=== PATIENT | female | born 1985 | race Caucasian/White ===

== ENCOUNTER 2023-07-14 15:10 | Emergency (ER) | payer OTHER, SELFPAY ==
[2023-07-14 15:12] VITALS: BP 131/86
[2023-07-14 15:44] VITALS: BMI 22.3
--- NOTE | 2023-07-14 16:31 | ED.GENMED ---
History of Present Illness
<Alberta Piedra PA-C - Last Filed: 07/14/23 19:44>
General
Chief Complaint: Back Pain
Source: patient
Exam Limitations: none
Time Seen by Provider: 07/14/23 16:29
Nursing documentation reviewed up to this point in time: agreed with
Travel History
Have you had any contact with someone who has COVID-19?: No
Do you have any symptoms of coronavirus? Fever > 100 degrees, chills, cough, shortness of breath, sore throat, loss of taste or smell, muscle aches, or headache?: No
History of Present Illness
History of Present Illness:
This is a 38 y/o female with PMH of hemochromatosis presenting to the emergency department today with concerns of low back pain, left foot bruising and paresthesias. Patient states the back pain started a month ago. Patient saw her primary
yesterday for this pain, she was given baclofen as well as a NSAID to take for relief. Patient had 1 dose of baclofen and one of her anti-inflammatory agent. Patient still has no relief, did not take any further doses. Patient also notes that she
has had bilateral hip pain for the past 15 years. Patient has no cause of the symptoms. Patient also complains of irregular periods today. Her primary did order a ultrasound. Patient is concerned the symptoms are all connected. Her main concern
today seems to be the atraumatic bruising on her left foot as well as a lack of relief with her back pain. Patient is no history of bleeding disorders. Patient has no fevers or chills, unexplained weight loss, bleeding in her gums, melena.
Patient denies any urinary incontinence, fecal incontinence.
Review of Systems
<Alberta Piedra PA-C - Last Filed: 07/14/23 19:44>
Review of Systems
All Other Systems: ROS reviewed and negative except as documented in HPI and ROS
Phy Exam
<Alberta Piedra PA-C - Last Filed: 07/14/23 19:44>
Physical Exam
Physical Exam:
Vitals: Patient's vital signs are stable, patient is afebrile
General: Patient is well appearing and in no acute distress; non-toxic
Skin: There is a small area of ecchymosis on the left lateral foot near the MCP. No tenderness palpation. Not hot to touch, no erythema
Head: Normocephalic, atraumatic
Eyes: Sclera non-icteric. EOMs intact.
Cardiac: Regular rate
Peripheral Vascular: No lower extremity swelling
Pulm: Normal respiratory effort
Abdomen: No abdominal tenderness
Musculoskeletal: No midline spinal tenderness, no palpable deformities. Patient does have some mild paralumbar tenderness on either side. No pain with range of motion of hips bilaterally.
Neuro: CN II-XII intact, no focal neurologic deficits.
Psychiatric: Appropriate mood and affect.
Course
<Alberta Piedra PA-C - Last Filed: 07/14/23 19:44>
Orders/Labs/Results
Orders:
Orders
07/14/23 17:29
Lumbar Spine, 2 or 3 View [CR Lumbar Spine 2 Or 3 Views] Urgent
Comment:
Reason For Exam: low back pain
07/14/23 17:30
Test Result ONCE
07/14/23 17:50
Complete Blood Count/With Diff Urgent
HCG, Serum Qualitative Screen Urgent
Abnormal Lab Results
07/14/23
17:50
RBC 3.93 L 10^6/uL
(4.20-5.40)
Hgb 11.5 L g/dL
(12.0-16.0)
Hct 34.3 L %
(37.0-47.0)
MPV 10.5 H fL
(7.4-10.4)
Absolute Monos (auto) 0.7 H 10^3/uL
(0.1-0.6)
07/14/23 17:50
Vital Signs
Initial and Last Documented VS:
Initial Vital Signs
Temp Pulse Resp BP Pulse Ox
98.0 F 74 18 131/86 99
07/14/23 15:12 07/14/23 15:12 07/14/23 15:12 07/14/23 15:12 07/14/23 15:12
Last Documented Vital Signs
Temp Pulse Resp BP Pulse Ox
98.0 F 74 18 128/61 99
07/14/23 15:12 07/14/23 19:18 07/14/23 19:18 07/14/23 19:18 07/14/23 19:18
<Ben Sharath Cabrera DO - Last Filed: 07/14/23 17:39>
Orders/Labs/Results
Orders:
Orders
07/14/23 17:29
Lumbar Spine, 2 or 3 View [CR Lumbar Spine 2 Or 3 Views] Urgent
Comment:
Reason For Exam: low back pain
07/14/23 17:30
Test Result ONCE
07/14/23 17:50
Complete Blood Count/With Diff Urgent
HCG, Serum Qualitative Screen Urgent
Abnormal Lab Results
07/14/23
17:50
RBC 3.93 L 10^6/uL
(4.20-5.40)
Hgb 11.5 L g/dL
(12.0-16.0)
Hct 34.3 L %
(37.0-47.0)
MPV 10.5 H fL
(7.4-10.4)
Absolute Monos (auto) 0.7 H 10^3/uL
(0.1-0.6)
07/14/23 17:50
Vital Signs
Initial and Last Documented VS:
Initial Vital Signs
Temp Pulse Resp BP Pulse Ox
98.0 F 74 18 131/86 99
07/14/23 15:12 07/14/23 15:12 07/14/23 15:12 07/14/23 15:12 07/14/23 15:12
Last Documented Vital Signs
Temp Pulse Resp BP Pulse Ox
98.0 F 74 18 128/61 99
07/14/23 15:12 07/14/23 19:18 07/14/23 19:18 07/14/23 19:18 07/14/23 19:18
<Alberta Piedra PA-C - Last Filed: 07/14/23 19:44>
MDM/Problems Addressed
Differential Diagnosis Includes:
ddx include sacrailiac muscle sprain, scoliosis, rheumatoid thrice, osteoarthritis, normal uterine bleeding, hemophilia, anemia
MDM/Problems Addressed:
Back pain, ecchymosis
Chronic conditions affecting care:
hemachromatosis
<Alberta Piedra PA-C - Last Filed: 07/14/23 19:44>
*Radiology
Radiology exam reviewed: preliminary read by ED provider (No acute fracture or dislocation)
*Pulse Oximetry
Patient hypoxic: no
*Critical Care Note
Total Time (30-74mins, 75-104mins- exclusive of procedures): Not Applicable
Data Reviewed
Review of Other/Old Records Reveals: Records (No previous ER records to review.) and Discharge Summary (No discharge summaries in [facility] to review)
Source: patient and records
<Alberta Piedra PA-C - Last Filed: 07/14/23 19:44>
Patient Management
Escalation/DeEscalation of care consider admission/obs:
This is a 38 y/o female with PMH of hemochromatosis presenting to the emergency department today with concerns of low back pain, left foot bruising and paresthesias. Patient was seen by her primary yesterday and given baclofen and NSAIDs. Patient
is not having relief. Her x-ray demonstrates some osteophytes in the spine, some mild scoliosis, some mild sclerosis in the hips bilaterally which may be early avascular necrosis. We updated patient on these findings, patient was given referral
for orthopedics.
Patient does have an ultrasound ordered by her primary for irregular menstruation and intermittent vaginal bleeding. Patient will follow-up with this. In terms of patient's bruising, patient no trauma but considering patient's platelet counts are
normal, no concern at this time, patient will follow-up with her primary.
Patient in agreement with plan, return precautions given.
ED Attending Note
<Alberta Piedra PA-C - Last Filed: 07/14/23 19:44>
-
Portions of this chart may have been created with voice recognition software.� Occasional wrong word or��sound alike� substitutions may have occurred due to the inherent limitations of voice recognition software.
<Ben Cabrera DO - Last Filed: 07/14/23 17:39>
ED Attending Note
Patient seen and examined by attending physician: Yes
I performed the substantive portion of visit, reviewed & personally made and approve the management plan that is documented in note by myself or AMADOU.: Yes
ED Attending Note:
I agree with Alberta's note.
Pt with low back pain, foot bruise and irregular periods. No bowel or bladder dysfx. No weakness/numbness/tingling.
General: Awake, Alert, Oriented X3. No acute distress.
Vitals: unremarkable
Head: Atraumatic
Eyes: Pupils equal, EOMI
Throat: Airway intact, no exudates
Neck: Trachea midline
Lungs: Clear and equal b/l
Heart: Regular rate, no murmurs
Abd: Soft, Nontender, No pulsatile mass
Neuro: Nonfocal muscle strength equal bilateral lower extremities. Sensation intact. Reflexes intact
Skin: Warm, dry, no rash
Extremities: pulses equal b/l, no edema,
We will obtain CBC to make sure she is not thrombocytopenic. Plain films ordered.
Discharge Plan
Departure
Patient Disposition: Home (Routine Discharge)
Date of Disposition: 07/14/23
Time of Disposition: 19:03
Patient with high blood pressure during this ER visit?: Yes
Condition: Good
Discharge Problem:
Sprain of sacroiliac joint
Instructions: Low Back Pain (DC), Sacroiliac Joint Pain (DC), BLOOD PRESSURE
Prescriptions:
New
methylprednisolone [Medrol (Gregorio)] 4 mg tablets,dose pack
See Rx Instructions .ROUTE .COMPLEX Qty: 21 0RF
Rx Instructions:
orally per package directions
Referrals:
Rahul Stuart MD [Active] - Call in 1-3 days for appt
Yogi Wilkins MD [Family Provider] -
Activity Restrictions/Additional Instructions:
Please continue your NSAID and muscle relaxant as prescribed by your primary care provider. Should your symptoms not resolve, you can trial a medrol dose pack, please follow package instructions for dosing.
Please follow up with your primary care provider should you experience more unexplained bruising, fevers or chills, unexplained weight loss, bleeding from your gums, continued heavy menstrual bleeding.
Please return to the emergency department for any concerns.
Interventions
Interventions:
*Risk Screen - Suicide Last Done: 07/14/23 15:12
*General Assessment Last Done: 07/14/23 15:12
*Neglect/Abuse Screening Last Done: 07/14/23 15:12
ED- Fall Risk Assessment Last Done: 07/14/23 15:44
*ED COVID-19 Vaccine History Last Done: 07/14/23 15:12
*Nursing Disposition Last Done: 07/14/23 19:18
ED-Musculoskeletal Assessment Last Done: 07/14/23 15:44
Discharge Date and Time
Discharge Date/Time: 07/14/23 19:19
Print Language: DJIBOUTIAN
--- NOTE | 2023-07-14 17:28 | EDRN ---
Dr. Cabrera currently at the pts bedside speaking with the pt
[2023-07-14 17:57] LABS: % Basophils 0.5 % (0-2); % Immature Granulocytes 0.1 % (0-0.5); % Lymphocytes 33.1 % (20.5-51.1); % Monocytes 8.2 % (1.7-9.3); % Neutrophils 56.1 % (42.2-75.2); Absolute Eosinophils 0.2 10^3/uL (0-0.7); Absolute Lymphocytes 2.9 10^3/uL (1.2-3.4); Absolute Monocytes 0.7 10^3/uL (0.1-0.6); Absolute Neutrophils 4.9 10^3/uL (1.4-6.5); Hematocrit 34.3 % (37.0-47.0); Hemoglobin 11.5 g/dL (12.0-16.0); Mean Corp Hgb Conc. 33.5 g/dL (33.0-37.0); Mean Corpuscular Hgb 29.3 pg (27.0-31.0); Mean Corpuscular Volume 87.3 fL (81.0-99.0); Mean Platelet Volume 10.5 fL (7.4-10.4); Nucleated Red Blood Cells % 0 %; Platelet Count 246 10^3/uL (130-400); Red Blood Cell Count 3.93 10^6/uL (4.20-5.40); Red Cell Dist. Width 12.9 % (11.5-14.5); White Blood Cell Count 8.7 10^3/uL (4.8-10.8)
[2023-07-14 18:30] LABS: HCG, Serum Qualitative Screen Negative
[2023-07-14 19:18] VITALS: BP 128/61
== END 2023-07-14 19:19 | disposition home or self-care (01) ==
LOC: EMR 15:10
PROVIDERS: Physician Assistant; EMERGENCY PHYSICIAN Emergency Medicine; FAMILY PHYSICIAN Internal Medicine
DX: S33.6XXA Sprain of sacroiliac joint, initial encounter (principal); X58.XXXA Exposure to other specified factors, initial encounter
CPT/HCPCS: 99283; 72100; 84703; 85025